=== PATIENT | male | born 1995 | race American Indian/Alaskan Native ===

== ENCOUNTER 2024-05-17 23:10 | Emergency (ER) | payer BC, MEDICAID ==
[2024-05-17] MEDS: Sodium Chloride 0.9% 10 ML Syringe FLUSH PRN (23:42)
[2024-05-17] MEDS: Ondansetron 4 MG Tab.DIS PO ONE (23:42)
[2024-05-17 23:50] LABS: BASOPHILS ABSOLUTE AUTO 0.1 K/mm3 (0.0-0.2); BASOPHILS PERCENT AUTO 1.1 % (0.0-1.0); EOSINOPHILS ABSOLUTE AUTO 0.1 K/mm3 (0.0-0.4); EOSINOPHILS PERCENT AUTO 1.1 % (0.0-6.0); HEMOGLOBIN 15.3 gm/dl (14.0-18.0); IMMATURE GRAN ABSOLUTE AUTO 0.01 K/mm3 (0.00-0.05); IMMATURE GRAN PERCENT AUTO 0.2 % (0.0-0.4); LYMPHOCYTES ABSOLUTE AUTO 1.9 K/mm3 (1.0-4.8); LYMPHOCYTES PERCENT AUTO 29.6 % (24.0-44.0); MEAN CORPUSCULAR HEMOGLOBIN 29.7 pg (28.0-32.0); MEAN CORPUSCULAR VOLUME 87.2 fl (83.0-99.0); MEAN PLATELET VOLUME 9.1 fl (9.4-12.4); MONOCYTES ABSOLUTE AUTO 0.4 K/mm3 (0.0-0.8); MONOCYTES PERCENT AUTO 6.1 % (0.0-8.0); NEUTROPHILS ABSOLUTE AUTO 4.1 K/mm3 (1.8-7.7); NEUTROPHILS PERCENT AUTO 61.9 % (41.0-71.0); PLATELET COUNT,PLT 317 K/mm3 (150-400); RED BLOOD CELL COUNT 5.16 M/mm3 (4.52-5.90); WHITE BLOOD CELL COUNT,WBC 6.53 K/mm3 (3.9-11.3)
[2024-05-18 00:17] LABS: ALBUMIN 3.9 g/dl (3.4-5.0); ANION GAP 17.7 (5-15); BILIRUBIN TOTAL 0.3 mg/dL (0.2-1.0); BUN/CREATININE RATIO 11.1 (14-18); CALCIUM 8.3 mg/dL (8.5-10.1); CREATININE 0.9 mg/dL (0.7-1.3); EST CRCL DRUG DOSING (CG) 116.55 mL/min; ETHANOL BLOOD MEDICAL 0.31 gm% (0.00); MAGNESIUM 1.7 mg/dL (1.8-2.4); POTASSIUM,K 3.7 mEq/L (3.5-5.1); PROTEIN TOTAL,TP 7.9 g/dl (6.4-8.2)
[2024-05-18] MEDS: LORazepam 2 MG/ML SDV ONE (04:01)
== END 2024-05-18 04:20 | disposition home or self-care (01) ==
LOC: JD.ED 23:10
DX: F10.120 Alcohol abuse with intoxication, uncomplicated (principal); E83.42 Hypomagnesemia; F17.210 Nicotine dependence, cigarettes, uncomplicated
CPT/HCPCS: 36415; 80053; 80307; 83735; 85025; 99285; A9270

== ENCOUNTER 2024-05-19 18:18 | Emergency (ER) | payer MEDICAID ==
[2024-05-19 18:53] LABS: BASOPHILS PERCENT AUTO 0.4 % (0.0-1.0); EOSINOPHILS PERCENT AUTO 0.1 % (0.0-6.0); HEMATOCRIT 50.6 % (42.0-52.0); IMMATURE GRAN ABSOLUTE AUTO 0.02 K/mm3 (0.00-0.05); IMMATURE GRAN PERCENT AUTO 0.2 % (0.0-0.4); LYMPHOCYTES ABSOLUTE AUTO 0.8 K/mm3 (1.0-4.8); LYMPHOCYTES PERCENT AUTO 8.9 % (24.0-44.0); MEAN CORPUSCULAR HEMOGLOBIN 29.6 pg (28.0-32.0); MEAN CORPUSCULAR HGB CONC 33.6 g/dl (32.0-36.0); MEAN PLATELET VOLUME 9.5 fl (9.4-12.4); MONOCYTES ABSOLUTE AUTO 0.1 K/mm3 (0.0-0.8); MONOCYTES PERCENT AUTO 1.2 % (0.0-8.0); NEUTROPHILS ABSOLUTE AUTO 7.9 K/mm3 (1.8-7.7); NEUTROPHILS PERCENT AUTO 89.2 % (41.0-71.0); PLATELET COUNT,PLT 357 K/mm3 (150-400); RED BLOOD CELL COUNT 5.75 M/mm3 (4.52-5.90); WHITE BLOOD CELL COUNT,WBC 8.91 K/mm3 (3.9-11.3)
[2024-05-19] MEDS: Thiamine 100 MG in Sodium Chloride 0.9% 10 ML IV ONE (18:53)
[2024-05-19] MEDS: Ondansetron 4 MG/2 ML SDV IVPUSH ONE (18:58)
[2024-05-19] MEDS: Thiamine 200 MG/2 ML MDV IVPUSH ONE (19:00)
[2024-05-19] MEDS: Lactated Ringers 1,000 ML IV SCH (19:04)
[2024-05-19 19:09] LABS: ALBUMIN 4.6 g/dl (3.4-5.0); BILIRUBIN TOTAL 0.5 mg/dL (0.2-1.0); BUN/CREATININE RATIO 11.7 (14-18); CALCIUM 8.7 mg/dL (8.5-10.1); CREATININE 1.2 mg/dL (0.7-1.3); EST CRCL DRUG DOSING (CG) 84.5 mL/min; ETHANOL BLOOD MEDICAL 0.23 gm% (0.00); PROTEIN TOTAL,TP 9.4 g/dl (6.4-8.2)
[2024-05-19 19:17] LABS: ANION GAP 33.4 (5-15); POTASSIUM,K 5.4 mEq/L (3.5-5.1)
[2024-05-19] MEDS: Folic Acid 1 MG Tab PO ONE (19:28)
[2024-05-19 19:30] LABS: BARBITURATE SCREEN,URINE NEGATIVE (CUTOFF=200); BENZODIAZEPINES SCREEN,URINE NEGATIVE (CUTOFF=150); BUPRENORPHINE SCREEN,URINE NEGATIVE (CUTOFF=10); METHADONE SCREEN, URINE NEGATIVE (CUT0FF=200); METHAMPHETAMINES SCREEN, URINE NEGATIVE (CUTOFF=500); OXYCODONE SCREEN,URINE NEGATIVE (CUT0FF=100); THC SCREEN,URINE 20 NG/ML NEGATIVE (CUTOFF=50)
[2024-05-19 19:35] LABS: AMPHETAMINES SCREEN, URINE NEGATIVE (CUTOFF=500)
[2024-05-19] MEDS: Sodium Chloride 0.9% 1,000 ML IV SCH ×2 (19:40→20:57)
[2024-05-19] MEDS: LORazepam 2 MG/ML SDV IVPUSH ONE (19:40)
[2024-05-19] MEDS: Sodium Bicarbonate 8.4% 50 MEQ/50 ML Syringe IVPUSH ONE (20:26)
[2024-05-19] MEDS: 50% Dextrose in Water 50 ML Syringe IVPUSH ONE (20:32)
[2024-05-19] MEDS: Insulin Regular, Human 100 Units/ML 10 ML Vial IV ONE (20:58)
[2024-05-19 22:05] LABS: ANION GAP 23.8 (5-15); CALCIUM 7.3 mg/dL (8.5-10.1); EST CRCL DRUG DOSING (CG) 101.4 mL/min; POTASSIUM,K 4.8 mEq/L (3.5-5.1)
[2024-05-19] MEDS: LORazepam 1 MG Tab PO ONE (22:37)
== END 2024-05-19 22:56 | disposition home or self-care (01) ==
LOC: JD.ED 18:18
DX: F10.10 Alcohol abuse, uncomplicated (principal); E87.5 Hyperkalemia; E87.1 Hypo-osmolality and hyponatremia; J45.909 Unspecified asthma, uncomplicated; F17.210 Nicotine dependence, cigarettes, uncomplicated; Z91.048 Other nonmedicinal substance allergy status; Z79.899 Other long term (current) drug therapy; Y90.0 Blood alcohol level of less than 20 mg/100 ml
CPT/HCPCS: 36415; 80048; 80053; 80143; 80179; 80306; 80307; 82800; 82947; 84132; 85025; 93005; 96361; 96374; 96375; 99284; A9270; J1815; J2060; J2405; J3411; J7030; J7120; 93010; J3490

== ENCOUNTER 2024-05-28 00:45 | Emergency (ER) | payer MEDICAID ==
[2024-05-28] MEDS: Sodium Chloride 0.9% 1,000 ML IV ONE (01:19)
[2024-05-28] MEDS: Ondansetron 4 MG/2 ML SDV IVPUSH ONE (01:20)
[2024-05-28] MEDS: Thiamine 100 MG in Sodium Chloride 0.9% 100 ML IV ONE (01:20)
[2024-05-28 01:40] LABS: ETHANOL BLOOD MEDICAL 0.39 gm% (0.00)
[2024-05-28 01:57] LABS: ALBUMIN 3.8 g/dl (3.4-5.0); ANION GAP 22.8 (5-15); BILIRUBIN TOTAL 0.7 mg/dL (0.2-1.0); EST CRCL DRUG DOSING (CG) 90.91 mL/min; POTASSIUM,K 3.8 mEq/L (3.5-5.1); PROTEIN TOTAL,TP 7.7 g/dl (6.4-8.2)
[2024-05-28 01:59] LABS: BASOPHILS ABSOLUTE AUTO 0.1 K/mm3 (0.0-0.2); BASOPHILS PERCENT AUTO 0.6 % (0.0-1.0); EOSINOPHILS PERCENT AUTO 0.4 % (0.0-6.0); IMMATURE GRAN ABSOLUTE AUTO 0.02 K/mm3 (0.00-0.05); IMMATURE GRAN PERCENT AUTO 0.2 % (0.0-0.4); LYMPHOCYTES ABSOLUTE AUTO 1.9 K/mm3 (1.0-4.8); LYMPHOCYTES PERCENT AUTO 22.5 % (24.0-44.0); MEAN CORPUSCULAR HEMOGLOBIN 29.7 pg (28.0-32.0); MEAN CORPUSCULAR HGB CONC 34.1 g/dl (32.0-36.0); MEAN CORPUSCULAR VOLUME 86.9 fl (83.0-99.0); MEAN PLATELET VOLUME 9.7 fl (9.4-12.4); MONOCYTES ABSOLUTE AUTO 0.4 K/mm3 (0.0-0.8); MONOCYTES PERCENT AUTO 4.4 % (0.0-8.0); NEUTROPHILS PERCENT AUTO 71.9 % (41.0-71.0); PLATELET COUNT,PLT 154 K/mm3 (150-400); RED BLOOD CELL COUNT 4.72 M/mm3 (4.52-5.90); WHITE BLOOD CELL COUNT,WBC 8.27 K/mm3 (3.9-11.3)
[2024-05-28 02:33] LABS: BARBITURATE SCREEN,URINE NEGATIVE (CUTOFF=200); BENZODIAZEPINES SCREEN,URINE NEGATIVE (CUTOFF=150); BUPRENORPHINE SCREEN,URINE NEGATIVE (CUTOFF=10); METHADONE SCREEN, URINE NEGATIVE (CUT0FF=200); METHAMPHETAMINES SCREEN, URINE NEGATIVE (CUTOFF=500); OXYCODONE SCREEN,URINE NEGATIVE (CUT0FF=100); THC SCREEN,URINE 20 NG/ML NEGATIVE (CUTOFF=50)
[2024-05-28 02:37] LABS: AMPHETAMINES SCREEN, URINE NEGATIVE (CUTOFF=500)
== END 2024-05-28 06:53 | disposition home or self-care (01) ==
LOC: JD.ED 00:45
DX: F10.129 Alcohol abuse with intoxication, unspecified (principal); J45.909 Unspecified asthma, uncomplicated; Z91.048 Other nonmedicinal substance allergy status; Z79.899 Other long term (current) drug therapy; Y90.0 Blood alcohol level of less than 20 mg/100 ml
CPT/HCPCS: 36415; 80053; 80306; 80307; 83690; 85025; 87428; 96361; 96365; 96375; 99284; J2405; J3411; J7030

== ENCOUNTER 2024-05-30 02:59 | Emergency (ER) | payer MEDICAID ==
[2024-05-30] MEDS ORDERED: Sodium Chloride 0.9% 10 ML Syringe FLUSH PRN (03:09)
[2024-05-30] MEDS: Sodium Chloride 0.9% 1,000 ML IV ONE (03:20)
[2024-05-30 03:25] LABS: BASOPHILS PERCENT AUTO 0.6 % (0.0-1.0); EOSINOPHILS PERCENT AUTO 0.9 % (0.0-6.0); HEMATOCRIT 38.3 % (42.0-52.0); HEMOGLOBIN 13.5 gm/dl (14.0-18.0); IMMATURE GRAN ABSOLUTE AUTO 0.01 K/mm3 (0.00-0.05); IMMATURE GRAN PERCENT AUTO 0.2 % (0.0-0.4); LYMPHOCYTES ABSOLUTE AUTO 1.5 K/mm3 (1.0-4.8); LYMPHOCYTES PERCENT AUTO 32.9 % (24.0-44.0); MEAN CORPUSCULAR HEMOGLOBIN 29.9 pg (28.0-32.0); MEAN CORPUSCULAR HGB CONC 35.2 g/dl (32.0-36.0); MEAN CORPUSCULAR VOLUME 84.7 fl (83.0-99.0); MEAN PLATELET VOLUME 9.3 fl (9.4-12.4); MONOCYTES ABSOLUTE AUTO 0.4 K/mm3 (0.0-0.8); MONOCYTES PERCENT AUTO 8.7 % (0.0-8.0); NEUTROPHILS ABSOLUTE AUTO 2.6 K/mm3 (1.8-7.7); NEUTROPHILS PERCENT AUTO 56.7 % (41.0-71.0); PLATELET COUNT,PLT 117 K/mm3 (150-400); RED BLOOD CELL COUNT 4.52 M/mm3 (4.52-5.90); WHITE BLOOD CELL COUNT,WBC 4.62 K/mm3 (3.9-11.3)
[2024-05-30] MEDS: Famotidine 20 MG Tab PO ONE (03:42)
[2024-05-30] MEDS: Alum Hydrox/Mag Hydrox/Simeth 30 ML, Lidocaine 2% 15 ML PO ONE (03:43)
[2024-05-30 03:58] LABS: ALBUMIN 3.7 g/dl (3.4-5.0); ANION GAP 21.6 (5-15); BILIRUBIN TOTAL 0.7 mg/dL (0.2-1.0); BUN/CREATININE RATIO 8.9 (14-18); CALCIUM 8.5 mg/dL (8.5-10.1); CREATININE 0.9 mg/dL (0.7-1.3); EST CRCL DRUG DOSING (CG) 108.78 mL/min; ETHANOL BLOOD MEDICAL 0.22 gm% (0.00); MAGNESIUM 1.3 mg/dL (1.8-2.4); POTASSIUM,K 3.6 mEq/L (3.5-5.1); PROTEIN TOTAL,TP 7.6 g/dl (6.4-8.2)
[2024-05-30] MEDS: Magnesium Oxide 400 MG Tab PO ONE (06:18)
== END 2024-05-30 09:10 ==
LOC: JD.ED 02:59
DX: F10.120 Alcohol abuse with intoxication, uncomplicated (principal); R07.9 Chest pain, unspecified; Z91.048 Other nonmedicinal substance allergy status; Z79.899 Other long term (current) drug therapy; Y90.9 Presence of alcohol in blood, level not specified
CPT/HCPCS: 36415; 70450; 70450-26; 71045; 71045-26; 72125; 72125-26; 80053; 80307; 83690; 83735; 84484; 85025; 93005; 93010; 96360; 99284; 99285-25; A9270-GY; J7030

== ENCOUNTER 2024-07-12 10:03 | Inpatient (IN) | payer SELFPAY ==
[2024-07-12 10:37] LABS: BASOPHILS PERCENT AUTO 0.5 % (0.0-1.0); EOSINOPHILS PERCENT AUTO 0.3 % (0.0-6.0); HEMATOCRIT 41.9 % (42.0-52.0); HEMOGLOBIN 14.8 gm/dl (14.0-18.0); IMMATURE GRAN ABSOLUTE AUTO 0.02 K/mm3 (0.00-0.05); IMMATURE GRAN PERCENT AUTO 0.3 % (0.0-0.4); LYMPHOCYTES ABSOLUTE AUTO 1.2 K/mm3 (1.0-4.8); LYMPHOCYTES PERCENT AUTO 15.2 % (24.0-44.0); MEAN CORPUSCULAR HEMOGLOBIN 29.2 pg (28.0-32.0); MEAN CORPUSCULAR HGB CONC 35.3 g/dl (32.0-36.0); MEAN CORPUSCULAR VOLUME 82.8 fl (83.0-99.0); MEAN PLATELET VOLUME 9.6 fl (9.4-12.4); MONOCYTES ABSOLUTE AUTO 0.5 K/mm3 (0.0-0.8); MONOCYTES PERCENT AUTO 5.6 % (0.0-8.0); NEUTROPHILS ABSOLUTE AUTO 6.2 K/mm3 (1.8-7.7); NEUTROPHILS PERCENT AUTO 78.1 % (41.0-71.0); PLATELET COUNT,PLT 164 K/mm3 (150-400); RED BLOOD CELL COUNT 5.06 M/mm3 (4.52-5.90); WHITE BLOOD CELL COUNT,WBC 7.97 K/mm3 (3.9-11.3)
[2024-07-12 10:49] LABS: A/G RATIO 0.8 (1-2); ALBUMIN 3.5 g/dl (3.4-5.0); ANION GAP 19.8 (5-15); BILIRUBIN TOTAL 0.8 mg/dL (0.2-1.0); BUN/CREATININE RATIO 8.8 (14-18); CALCIUM 8.5 mg/dL (8.5-10.1); CREATININE 0.8 mg/dL (0.7-1.3); EST CRCL DRUG DOSING (CG) 122.38 mL/min; ETHANOL BLOOD MEDICAL 0.15 gm% (0.00); PROTEIN TOTAL,TP 7.8 g/dl (6.4-8.2)
[2024-07-12 10:50] LABS: POTASSIUM,K 3.8 mEq/L (3.5-5.1)
[2024-07-12] MEDS: Dextrose 5%-0.9% NaCl with KCl 1,000 ML IV SCH (11:56)
[2024-07-12] MEDS: LORazepam 2 MG/ML SDV IVPUSH ONE (11:57)
[2024-07-12] MEDS: Ondansetron 4 MG/2 ML SDV IVPUSH ONE (11:58)
[2024-07-12 12:09] LABS: BASE EXCESS VENOUS 2.6 (-4.0-2.0); BICARBONATE,VENOUS 24.5 meq/L (22-26); O2 SATURATION VENOUS 97.7; PH,VENOUS 7.52 (7.30-7.40)
[2024-07-12 14:18] LABS: BARBITURATE SCREEN,URINE NEGATIVE (CUTOFF=200); BENZODIAZEPINES SCREEN,URINE NEGATIVE (CUTOFF=150); BUPRENORPHINE SCREEN,URINE NEGATIVE (CUTOFF=10); METHADONE SCREEN, URINE NEGATIVE (CUT0FF=200); METHAMPHETAMINES SCREEN, URINE NEGATIVE (CUTOFF=500); OXYCODONE SCREEN,URINE NEGATIVE (CUT0FF=100); THC SCREEN,URINE 20 NG/ML NEGATIVE (CUTOFF=50)
[2024-07-12 14:38] LABS: AMPHETAMINES SCREEN, URINE NEGATIVE (CUTOFF=500)
[2024-07-12] MEDS ORDERED: Acetaminophen 325 MG Tab PO PRN (15:28)
[2024-07-12] MEDS ORDERED: Ondansetron 4 MG/2 ML SDV IV PRN (15:28)
[2024-07-12] MEDS ORDERED: LORazepam 2 MG/ML SDV IVPUSH PRN ×2 (15:33)
[2024-07-12] MEDS ORDERED: chlordiazePOXIDE 25 MG Cap PO SCH (15:45)
[2024-07-12] MEDS ORDERED: Potassium Chloride 10 MEQ in Premix Bag 1 BAG IV SCH (15:45)
[2024-07-12] MEDS ORDERED: Dextrose 5%-0.9% NaCl with KCl 1,000 ML IV SCH (15:45)
[2024-07-12] MEDS: chlordiazePOXIDE 25 MG Cap PO SCH (16:16)
[2024-07-12] MEDS: Magnesium Sulf/Wat 4 GM/50 mL 4 GM in Premix Bag 1 BAG IV ONE (16:16)
[2024-07-12] MEDS: Thiamine 200 MG/2 ML MDV IVPUSH ONE (16:16)
[2024-07-12] MEDS: Potassium Chloride 10 MEQ in Premix Bag 1 BAG IV SCH (16:17)
[2024-07-12 18:19] LABS: SODIUM,URINE RANDOM 4 mEq/L (40-220)
[2024-07-12 18:42] LABS: OSMOLALITY,URINE 541 mosm/kg (400-1100)
[2024-07-12 19:21] LABS: ANION GAP 11.5 (5-15); BUN/CREATININE RATIO 5.6 (14-18); CALCIUM 8.7 mg/dL (8.5-10.1); CREATININE 0.9 mg/dL (0.7-1.3); EST CRCL DRUG DOSING (CG) 108.78 mL/min; POTASSIUM,K 4.5 mEq/L (3.5-5.1)
[2024-07-13] MEDS: Nicotine 7 MG/24 Hr Patch TRDERM SCH (00:37)
[2024-07-13] MEDS: Enoxaparin 40 MG/0.4 ML Syringe SUBCUT SCH (02:17)
[2024-07-13 05:40] LABS: BASOPHILS PERCENT AUTO 0.5 % (0.0-1.0); EOSINOPHILS PERCENT AUTO 0.5 % (0.0-6.0); HEMATOCRIT 39.4 % (42.0-52.0); HEMOGLOBIN 13.8 gm/dl (14.0-18.0); IMMATURE GRAN ABSOLUTE AUTO 0.02 K/mm3 (0.00-0.05); IMMATURE GRAN PERCENT AUTO 0.3 % (0.0-0.4); LYMPHOCYTES ABSOLUTE AUTO 1.5 K/mm3 (1.0-4.8); LYMPHOCYTES PERCENT AUTO 19.4 % (24.0-44.0); MEAN CORPUSCULAR HEMOGLOBIN 29.6 pg (28.0-32.0); MEAN CORPUSCULAR VOLUME 84.4 fl (83.0-99.0); MEAN PLATELET VOLUME 9.8 fl (9.4-12.4); MONOCYTES ABSOLUTE AUTO 0.5 K/mm3 (0.0-0.8); MONOCYTES PERCENT AUTO 5.9 % (0.0-8.0); NEUTROPHILS ABSOLUTE AUTO 5.7 K/mm3 (1.8-7.7); NEUTROPHILS PERCENT AUTO 73.4 % (41.0-71.0); PLATELET COUNT,PLT 130 K/mm3 (150-400); RED BLOOD CELL COUNT 4.67 M/mm3 (4.52-5.90); WHITE BLOOD CELL COUNT,WBC 7.77 K/mm3 (3.9-11.3)
[2024-07-13 06:00] LABS: A/G RATIO 0.9 (1-2); ALBUMIN 3.3 g/dl (3.4-5.0); ANION GAP 11.8 (5-15); BILIRUBIN TOTAL 1.4 mg/dL (0.2-1.0); CALCIUM 8.8 mg/dL (8.5-10.1); CREATININE 0.6 mg/dL (0.7-1.3); EST CRCL DRUG DOSING (CG) 169.84 mL/min; MAGNESIUM 2.2 mg/dL (1.8-2.4); POTASSIUM,K 3.8 mEq/L (3.5-5.1); PROTEIN TOTAL,TP 7.2 g/dl (6.4-8.2)
[2024-07-13] MEDS: Pantoprazole 40 MG Tab.CR PO SCH (06:47)
[2024-07-13] MEDS: Thiamine 100 MG Tab PO SCH (08:46)
[2024-07-13] MEDS: Folic Acid 1 MG Tab PO SCH (08:46)
[2024-07-13] MEDS: Potassium Phosphates 30 MMOLE in Sodium Chloride 0.9% 500 ML IV SCH (10:37)
[2024-07-13] MEDS ORDERED: LORazepam 2 MG/ML SDV IVPUSH PRN (14:09)
[2024-07-13] MEDS ORDERED: Folic Acid 50 MG/10 ML MDV IV ONE (15:33)
[2024-07-14 05:57] LABS: A/G RATIO 0.9 (1-2); ALBUMIN 3.2 g/dl (3.4-5.0); ANION GAP 12.4 (5-15); BILIRUBIN TOTAL 0.9 mg/dL (0.2-1.0); BUN/CREATININE RATIO 12.5 (14-18); CALCIUM 8.8 mg/dL (8.5-10.1); CREATININE 0.8 mg/dL (0.7-1.3); EST CRCL DRUG DOSING (CG) 127.38 mL/min; MAGNESIUM 1.7 mg/dL (1.8-2.4); PHOSPHORUS 2.7 mg/dL (2.6-4.7); POTASSIUM,K 3.4 mEq/L (3.5-5.1); PROTEIN TOTAL,TP 6.9 g/dl (6.4-8.2)
[2024-07-14 06:46] LABS: FOLIC ACID 12.1 ng/mL (8.6-58.9)
[2024-07-14] MEDS: Magnesium Sulf/Wat 4 GM/50 mL 4 GM in Premix Bag 1 BAG IV ONE (09:03)
[2024-07-14] MEDS: Potassium Phosphates 30 MMOLE in Sodium Chloride 0.9% 500 ML IV SCH (11:24)
== END 2024-07-14 17:00 | disposition home or self-care (01) | DRG 897 ==
LOC: JD.ED 10:03 → JD.ICU 15:29
PROVIDERS: ADMIT Student in an Organized Health Care Education/Training Program; ATTEND Student in an Organized Health Care Education/Training Program
PROC: HZ2ZZZZ Detoxification Services for Substance Abuse Treatment (ICD-10-PCS; principal; 2024-07-12)
DX: F10.239 Alcohol dependence with withdrawal, unspecified (principal); E87.1 Hypo-osmolality and hyponatremia; E46 Unspecified protein-calorie malnutrition; F10.229 Alcohol dependence with intoxication, unspecified; J45.909 Unspecified asthma, uncomplicated; R56.9 Unspecified convulsions; F41.9 Anxiety disorder, unspecified; F32.A Depression, unspecified; E87.8 Other disorders of electrolyte and fluid balance, not elsewhere classified; D50.9 Iron deficiency anemia, unspecified; F17.200 Nicotine dependence, unspecified, uncomplicated; E83.42 Hypomagnesemia; E86.0 Dehydration; Z87.19 Personal history of other diseases of the digestive system; Z88.8 Allergy status to other drugs, medicaments and biological substances; Z79.899 Other long term (current) drug therapy
CPT/HCPCS: 36415; 80048; 80053; 80143; 80306; 80307; 82010; 82607; 82746; 82803; 83735; 83930; 83935; 84100; 84300; 85025; 93005; 93010; 96365; 96366; 96375; 99223; 99233; 99238; 99285; 99285-25; A9270-GY; J1650; J2060; J2405; J3411; J3475; J3480; J3490; J7040